=== PATIENT | female | born 1995 | race Two or more races ===

== ENCOUNTER 2024-06-15 21:06 | Emergency (ER) | payer MEDICAID, SELFPAY ==
[2024-06-15 21:07] VITALS: BMI 31.0
[2024-06-15 22:07] VITALS: BP 114/68; PULSE 88; RESP 18; TEMP 36.6; O2SAT 100
[2024-06-15 23:22] LABS: Collection Type, Urine Clean Catch
[2024-06-15 23:39] LABS: Bilirubin,Urine Negative (Negative); Blood,Urine 2+ (Negative); Clarity,Urine Clear (Clear/Hazy); Color,Urine Yellow (Lt Yel-Yel); Culture Indicated,Urine Not Indicated; Glucose, Urine Negative (Negative); Ketones,Urine Negative (Negative); Leukocyte Esterase,Urine Positive (Negative); Nitrite,Urine Negative (Negative); PH,Urine 5.5 (5.0-7.0); Protein,Urine Negative (Neg - Trace); RBC,Urine 8 /hpf (0-3); Specific Gravity,Urine 1.026 (1.001-1.035); Squamous Epithelial Cell,Urine 6 /hpf (0-5); Urobilinogen,Urine Negative mg/dL (0.0-1.0); WBC,Urine 3 /hpf (0-5)
[2024-06-15 23:48] LABS: HCG Qualitative,Urine Negative
--- NOTE | 2024-06-16 00:03 | PD.EDRME ---
Rapid Medical Screening Exam E Arrival date/time: 06/15/24 21:06 29F with no significant PMH presents to ED with 5 weeks of dysuria and pelvic pressure/pain. Symptoms started after she had a vaginal delivery at [facility]. Patient has been there multiple times with normal US. UA showed some infection and patient has been on Keflex, Levofloxacin, metronidazole, and Diflucan w/o relief. Patient does not want to wait in queue for CT since the CT machine is down today. She will try again tomorrow. Chief Complaint: Abdominal Pain Time Seen by Provider: 06/15/24 22:12 Vital signs: Vital Signs Temperature 98 F 06/15/24 22:07 Pulse Rate 88 06/15/24 22:07 Respiratory Rate 18 06/15/24 22:07 Blood Pressure 114/68 06/15/24 22:07 Pulse Oximetry (%) 100 06/15/24 22:07 Oxygen Delivery Method Room Air 06/15/24 22:07
== END 2024-06-16 00:09 | disposition left against medical advice (07) ==
LOC: SERX 22:23
PROVIDERS: Physician Assistant; Emergency Provider Emergency Medicine; PCP Physician Assistant
DX: R10.9 Unspecified abdominal pain (principal); R30.0 Dysuria; Z53.29 Procedure and treatment not carried out because of patient's decision for other reasons
CPT/HCPCS: 81001; 81025; 99281